=== PATIENT | male | born 1980 | race Caucasian/White ===

== ENCOUNTER 2017-04-02 16:19 | Observation (INO) | payer BC, OTHER ==
[2017-04-02] MEDS ORDERED: Sodium Chloride 0.9% 10 ML Syringe FLUSH PRN (16:32)
[2017-04-02] MEDS ORDERED: Aspirin 81 MG Tab.Chew PO ONE (16:32)
[2017-04-02] MEDS ORDERED: Sodium Chloride 0.9% 2.5 ML Syringe FLUSH PRN (16:32)
[2017-04-02] MEDS ORDERED: Pantoprazole 40 MG Vial IVPUSH ONE (16:34)
--- NOTE | 2017-04-02 16:41 | EDM.PDOC ---
ED HPI GENERAL MEDICAL PROBLEM - General Chief Complaint: Chest Pain Stated Complaint: CHEST PAIN Time Seen by Provider: 04/02/17 16:23 - History of Present Illness INITIAL COMMENTS - FREE TEXT/NARRATIVE: HISTORY AND PHYSICAL: History of present illness: The patient is a 36-year-old male who normally follows at the [facility] and has a history of high cholesterol and acid reflux and a history of tobacco use but he quit in October of this year and he presents with 12 hours of mid sternal chest pain that radiates slightly to the left lower chest. The patient states he had a normal day yesterday and slept fine all night and woke up to get ready for work and as the morning progressed he started feeling the discomfort and he rates it as a 5-6/10. The patient states that he has had it for the last 12 hours but it is been episodic and then became more constant which is what worried him and prompted him to come here. He has had no shortness of breath nausea or vomiting and no abdominal pain no leg pain or swelling but he has had diaphoresis with these episodes. He states that he only came here because the episodes became more consistent and it was not waxing and waning. He has no back pain no arm pain and no radiation of the pain to the jaw or the arm. He states he had a stress test in the 5 years ago and he was not told of any abnormalities. He has had no upper respiratory symptoms fevers chills and has been eating and drinking normally throughout the day today despite the pain. The patient has no significant social history for cocaine or meth use but does have a father who had a heart attack in his early 50s. Review of systems: As per history of present illness and below otherwise all systems reviewed and negative. Past medical history: As per history of present illness and as reviewed below otherwise noncontributory. Surgical history: As per history of present illness and as reviewed below otherwise noncontributory. Social history: No reported history of drug or alcohol abuse. Family history: As per history of present illness and as reviewed below otherwise noncontributory. Physical exam: General: Well-developed overweight male who is nontoxic and speaking clearly and easily in the ED. Vital signs of a note by me. I mentioned his hypertension to the patient and he states it is never had that before HEENT: Atraumatic, normocephalic, pupils reactive, negative for conjunctival pallor or scleral icterus, mucous membranes moist, throat clear, neck supple, nontender, trachea midline. Lungs: Clear to auscultation, breath sounds equal bilaterally, chest wall is mildly tender on palpation at the costochondral margin on the left without defects deformities swelling or ecchymosis. Heart: S1S2, regular, negative for clicks, rubs, or JVD. Abdomen: Soft, nondistended, nontender. Negative for masses or hepatosplenomegaly. Negative for costovertebral tenderness. Pelvis: Stable nontender. Genitourinary: Deferred. Rectal: Deferred. Extremities: Atraumatic, negative for cords or calf pain. Neurovascular unremarkable. is no pedal edema or leg asymmetry Neuro: Awake, alert, oriented. Cranial nerves II through XII unremarkable. Cerebellum unremarkable. Motor and sensory unremarkable throughout. Exam nonfocal. Diagnostics: EKG chest x-ray CBC CMP INR troponin Therapeutics: IV O2 monitor aspirin sublingual nitroglycerin and Nitropaste Please note the patient's pain is a 0 after [address] Nitrop[address] and plan on observation admission. I'm currently awaiting the rest of the testing results and we'll discuss them with the patient and the care plan of admission 1713: I discussed all testing results with the patient and with Dr. Calrk. Both are agreeable to observation admission. Impression: Chest pain rule out ACS Definitive disposition and diagnosis as appropriate pending reevaluation and review of above. chest Pain Score (Numeric/FACES): 3 - Related Data Allergies Allergy/AdvReac Type Severity Reaction Status Date / Time No Known Allergies Allergy Verified 04/02/17 16:30 Home Meds: Home Meds FLUoxetine [PROzac] 10 mg PO DAILY 09/09/14 [History] Omeprazole [priLOSEC OTC] 20 mg PO DAILY 09/09/14 [History] Pantoprazole Sodium 1 tab PO DAILY 10/31/15 [History] Ranitidine HCl 1 cap PO DAILY 10/31/15 [History] Past Medical History Respiratory History: Reports: Sleep Apnea Other Respiratory History: Sleep apnea with machine Gastrointestinal History: Reports: GERD, Other (See Below) Other Gastrointestinal History: Epigastric pain, vomiting post meals Musculoskeletal History: Reports: Fracture Other Musculoskeletal History: Dislocated and fractured bilateral wrists Neurological History: Reports: Other (See Below) Other Neuro History: Frequent Headaches Psychiatric History: Reports: Anxiety, Depression Endocrine/Metabolic History: Reports: Obesity/BMI 30+ Immunologic History: Reports: Other (See Below) Other Immunologic History: 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 Monte regarding this. - Past Surgical History HEENT Surgical History: Reports: Oral Surgery Musculoskeletal Surgical History: Reports: Other (See Below) Social & Family History - Tobacco Use Smoking Status *Q: Former Smoker Years of Tobacco use: 12 Used Tobacco, but Quit: Yes Month Tobacco Last Used: 02/10/13 - Alcohol Use Days Per Week of Alcohol Use: 1 Number of Drinks Per Day: 2 Total Drinks Per Week: 2 - Recreational Drug Use Recreational Drug Use: Yes Drug Use in Last 12 Months: No Recreational Drug Type: Reports: Marijuana/Hashish ED ROS GENERAL - Review of Systems Review Of Systems: ROS reveals no pertinent complaints other than HPI. ED EXAM, GENERAL - Physical Exam Exam: See Below (See dictation) Course - Vital Signs Last Recorded V/S: Last Vital Signs Temp 36.4 C 04/02/17 16:30 Pulse 73 04/02/17 16:30 Resp 20 04/02/17 16:30 BP 130/87 04/02/17 16:48 Pulse Ox 96 04/02/17 16:32 - Orders/Labs/Meds Orders: Active Orders 24 hr Category Date Time Status Cardiac Monitoring [RC] . DIRECTED Care 04/02/17 16:32 Active EKG Documentation Completion [RC] STAT Care 04/02/17 16:32 Active Oxygen Therapy, ED [RC] ASDIRECTED Care 04/02/17 16:32 Active Pulse Oximetry [RC] ASDIRECTED Care 04/02/17 16:32 Active Chest 1V Frontal [CR] Stat Exams 04/02/17 16:32 Taken Sodium Chloride 0.9% [Saline Flush] Med 04/02/17 16:32 Active 10 ml FLUSH ASDIRECTED PRN Sodium Chloride 0.9% [Saline Flush] Med 04/02/17 16:32 Active 2.5 ml FLUSH ASDIRECTED PRN Saline Lock Insert [OM.PC] Stat Oth 04/02/17 16:32 Ordered Medication Orders Sodium Chloride (Saline Flush) 10 ml FLUSH ASDIRECTED PRN PRN Reason: Keep Vein Open Sodium Chloride (Saline Flush) 2.5 ml FLUSH ASDIRECTED PRN PRN Reason: Keep Vein Open Labs: Laboratory Tests 04/02/17 04/02/17 04/02/17 Range/Units 16:32 16:32 16:32 WBC 7.62 (4.0-11.0) K/uL RBC 4.98 (4.50-5.90) M/uL Hgb 14.6 (13.0-17.0) g/dL Hct 41.6 (38.0-50.0) % MCV 83.5 (80.0-98.0) fL MCH 29.3 (27.0-32.0) pg MCHC 35.1 (31.0-37.0) g/dL RDW Std Deviation 38.6 (28.0-62.0) fl RDW Coeff of [place] 13 (11.0-15.0) % Plt Count 226 (150-400) K/uL MPV 10.10 (7.40-12.00) fL Neut % (Auto) 54.0 (48.0-80.0) % Lymph % (Auto) 33.6 (16.0-40.0) % [place] % (Auto) 8.7 (0.0-15.0) % Eos % (Auto) 3.0 (0.0-7.0) % Baso % (Auto) 0.7 (0.0-1.5) % Neut # (Auto) 4.1 (1.4-5.7) K/uL Lymph # (Auto) 2.6 H (0.6-2.4) K/uL [place] # (Auto) 0.7 (0.0-0.8) K/uL Eos # (Auto) 0.2 (0.0-0.7) K/uL Baso # (Auto) 0.1 (0.0-0.1) K/uL Nucleated RBC % 0.0 /100WBC Nucleated RBCs # 0 K/uL INR 1.00 (0.86-1.11) Sodium 139 (136-146) mmol/L Potassium 3.7 (3.5-5.1) mmol/L Chloride 105 (98-110) mmol/L Carbon Dioxide 24 (21-31) mmol/L BUN 17 (6.0-23.0) mg/dL Creatinine 1.1 (0.6-1.5) mg/dL Est Cr Clr Drug Dosing 88.47 mL/min Estimated GFR (MDRD) > 60.0 ml/min Glucose 89 (60-110) mg/dL Calcium 9.0 (8.8-10.8) mg/dL Total Bilirubin 0.5 (0.1-1.5) mg/dL AST 26 (5-40) IU/L ALT 47 (8-54) IU/L Alkaline Phosphatase 107 (40-150) Troponin I (0.0-0.29) NG/ML Total Protein 7.4 (6.0-8.0) g/dL Albumin 4.6 (3.5-5.0) g/dL Globulin 2.8 (2.0-3.5) g/dL Albumin/Globulin Ratio 1.6 (1.3-2.8) / Range/Units 16:32 WBC (4.0-11.0) K/uL RBC (4.50-5.90) M/uL Hgb (13.0-17.0) g/dL Hct (38.0-50.0) % MCV (80.0-98.0) fL MCH (27.0-32.0) pg MCHC (31.0-37.0) g/dL RDW Std Deviation (28.0-62.0) fl RDW Coeff of [place] (11.0-15.0) % Plt Count (150-400) K/uL MPV (7.40-12.00) fL Neut % (Auto) (48.0-80.0) % Lymph % (Auto) (16.0-40.0) % [place] % (Auto) (0.0-15.0) % Eos % (Auto) (0.0-7.0) % Baso % (Auto) (0.0-1.5) % Neut # (Auto) (1.4-5.7) K/uL Lymph # (Auto) (0.6-2.4) K/uL [place] # (Auto) (0.0-0.8) K/uL Eos # (Auto) (0.0-0.7) K/uL Baso # (Auto) (0.0-0.1) K/uL Nucleated RBC % /100WBC Nucleated RBCs # K/uL INR (0.86-1.11) Sodium (136-146) mmol/L Potassium (3.5-5.1) mmol/L Chloride (98-110) mmol/L Carbon Dioxide (21-31) mmol/L BUN (6.0-23.0) mg/dL Creatinine (0.6-1.5) mg/dL Est Cr Clr Drug Dosing mL/min Estimated GFR (MDRD) ml/min Glucose (60-110) mg/dL Calcium (8.8-10.8) mg/dL Total Bilirubin (0.1-1.5) mg/dL AST (5-40) IU/L ALT (8-54) IU/L Alkaline Phosphatase (40-150) Troponin I < 0.10 (0.0-0.29) NG/ML Total Protein (6.0-8.0) g/dL Albumin (3.5-5.0) g/dL Globulin (2.0-3.5) g/dL Albumin/Globulin Ratio (1.3-2.8) Meds: Medications Generic Name Dose Route Start Last Admin Trade Name Freq PRN Reason Stop Dose Admin Sodium Chloride 10 ml 04/02/17 16:32 Saline Flush FLUSH ASDIRECTED PRN Keep Vein Open Sodium Chloride 2.5 ml 04/02/17 16:32 Saline Flush FLUSH ASDIRECTED PRN Keep Vein Open Discontinued Medications Generic Name Dose Route Start Last Admin Trade Name Freq PRN Reason Stop Dose Admin Aspirin 324 mg 04/02/17 16:32 04/02/17 16:43 Aspirin PO 04/02/17 16:33 324 mg ONETIME ONE Administration Nitroglycerin 0.4 mg 04/02/17 16:45 04/02/17 16:48 Nitrostat SL 04/02/17 16:56 0.4 mg Q5M BENJI Administration Nitroglycerin 1 gm 04/02/17 16:56 04/02/17 16:58 Nitro-Bid 2% TOP 04/02/17 16:57 1 gm ONETIME ONE Administration Pantoprazole Sodium 80 mg 04/02/17 16:34 04/02/17 16:43 Protonix Iv IVPUSH 04/02/17 16:35 80 mg .BOLUS ONE Administration Departure - Departure Time of Disposition: 17:26 Disposition: Refer to Observation Condition: Good Clinical Impression: Acute coronary syndrome - Discharge Information Forms: ED Department Discharge - My Orders Last 24 Hours: My Active Orders 04/02/17 16:32 Cardiac Monitoring [RC] . DIRECTED EKG Documentation Completion [RC] STAT Oxygen Therapy, ED [RC] ASDIRECTED Pulse Oximetry [RC] ASDIRECTED Chest 1V Frontal [CR] Stat Sodium Chloride 0.9% [Saline Flush] 10 ml FLUSH ASDIRECTED PRN Sodium Chloride 0.9% [Saline Flush] 2.5 ml FLUSH ASDIRECTED PRN Saline Lock Insert [OM.PC] Stat - Assessment/Plan Last 24 Hours: My Active Orders 04/02/17 16:32 Cardiac Monitoring [RC] . DIRECTED EKG Documentation Completion [RC] STAT Oxygen Therapy, ED [RC] ASDIRECTED Pulse Oximetry [RC] ASDIRECTED Chest 1V Frontal [CR] Stat Sodium Chloride 0.9% [Saline Flush] 10 ml FLUSH ASDIRECTED PRN Sodium Chloride 0.9% [Saline Flush] 2.5 ml FLUSH ASDIRECTED PRN Saline Lock Insert [OM.PC] Stat
[2017-04-02] MEDS: Nitroglycerin 0.4 MG Tab.SL SL SCH ×3 (16:43→19:58)
[2017-04-02] MEDS ORDERED: Nitroglycerin 2% Oint 1 GM UD Packet TOP ONE (16:56)
[2017-04-02 17:21] LABS: CHLORIDE,CL 105 mmol/L (98-110); SODIUM,NA 139 mmol/L (136-146)
[2017-04-02] MEDS ORDERED: Acetaminophen 325 MG Tab PO PRN (18:47)
--- NOTE | 2017-04-02 18:53 | PCM.HP ---
H&P History of Present Illness - History of Present Illness Initial Comments - Free Text/Narative: 36 yo male with pmh of PTSD, hypertriglyceridemia, and GERD who presents with 12 hour history of chest pain. It started this morning which he describes a constant pins and needles in the left substernal chest. If would flare at times but would not be related to exertion. He had diaphoresis but no shortness of breath, or lightheadedness. He received ASA, Nitro and protonix in the ED with resolution of chest pain. Initial EKG and cardiac enzymes were negative. chest Pain Score (Numeric/FACES): 3 - Related Data Allergies/Adverse Reactions: Allergies Allergy/AdvReac Type Severity Reaction Status Date / Time No Known Allergies Allergy Verified 04/02/17 16:30 Home Medications: Home Meds Pantoprazole Sodium 40 mg PO DAILY 10/31/15 [History] Sucralfate [Carafate] 1 gm PO Q6H #56 cup 04/03/17 [Rx] Past Medical History Cardiovascular History: Reports: High Cholesterol Respiratory History: Reports: Sleep Apnea Other Respiratory History: Sleep apnea with machine Gastrointestinal History: Reports: GERD, Other (See Below) Other Gastrointestinal History: Epigastric pain, vomiting post meals Musculoskeletal History: Reports: Fracture Other Musculoskeletal History: Dislocated and fractured bilateral wrists Neurological History: Reports: Other (See Below) Other Neuro History: Frequent Headaches Psychiatric History: Reports: Anxiety, Depression Endocrine/Metabolic History: Reports: Obesity/BMI 30+ Immunologic History: Reports: Other (See Below) Other Immunologic History: 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 Monte regarding this. - Past Surgical History HEENT Surgical History: Reports: Oral Surgery Musculoskeletal Surgical History: Reports: Other (See Below) Social & Family History - Family History Family Medical History: Noncontributory Cardiac: Reports: [place], Other (See Below) Other Cardiac Family History: mother and father - Tobacco Use Smoking Status *Q: Former Smoker Years of Tobacco use: 12 Used Tobacco, but Quit: Yes Month Tobacco Last Used: 02/10/13 - Caffeine Use Caffeine Use: Reports: None - Alcohol Use Days Per Week of Alcohol Use: 1 Number of Drinks Per Day: 2 Total Drinks Per Week: 2 - Recreational Drug Use Recreational Drug Use: Yes Drug Use in Last 12 Months: No Recreational Drug Type: Reports: Marijuana/Hashish H&P Review of Systems - Review of Systems: Review Of Systems: See Below General: Reports: No Symptoms HEENT: Reports: No Symptoms Pulmonary: Reports: No Symptoms Cardiovascular: Reports: No Symptoms Gastrointestinal: Reports: No Symptoms Genitourinary: Reports: No Symptoms Musculoskeletal: Reports: No Symptoms Skin: Reports: No Symptoms Psychiatric: Reports: No Symptoms Neurological: Reports: No Symptoms Hematologic/Lymphatic: Reports: No Symptoms Immunologic: Reports: No Symptoms Exam - Exam Exam: See Below - Vital Signs Vital Signs: Last Vital Signs Temp 36.4 C 04/02/17 16:30 Pulse 81 04/02/17 17:31 Resp 18 04/02/17 17:31 BP 127/87 04/02/17 17:31 Pulse Ox 96 04/02/17 17:31 Weight: 127.8 kg - Exam General: Alert, Oriented, 4 HEENT: Mucosa Moist & [place] Neck: Supple, Trachea Midline. No: JVD Lungs: Clear to Auscultation, Normal Respiratory Effort Cardiovascular: Regular Rate, Regular Rhythm Abdomen: Normal Bowel Sounds, Soft Extremities: Normal Inspection. No: Edema Skin: Warm, Dry, Intact Neurological: No: Focal Deficit - Patient Data Result Diagrams: 04/02/17 16:32 04/02/17 16:32 *Q Meaningful Use (ADM) - VTE *Q VTE Criteria *Q: - Stroke *Q Stroke Criteria *Q: - AMI *Q AMI Criteria *Q: Problem List Initiated/Reviewed/Updated: Yes Orders Last 24hrs: Active Orders 24 hr Category Date Time Status Antiembolic Devices [RC] PER UNIT ROUTINE Care 04/02/17 18:48 Ordered Cardiac Monitoring [RC] CONTINUOUS Care 04/02/17 18:48 Ordered Oxygen Therapy [RC] PRN Care 04/02/17 18:47 Ordered Up ad [place] [RC] ASDIRECTED Care 04/02/17 18:47 Ordered VTE/DVT Education [RC] PER UNIT ROUTINE Care 04/02/17 18:47 Ordered Vital Signs [RC] Q4H Care 04/02/17 18:47 Ordered Regular Diet [DIET] Diet 04/02/17 Breakfast Ordered LIPID PANEL [CHEM] AM Lab 04/03/17 05:11 Ordered TROPONIN I [CHEM] Q6H Lab 04/02/17 23:00 Ordered TROPONIN I [CHEM] Q6H Lab 04/03/17 05:00 Ordered Acetaminophen [Tylenol] Med 04/02/17 18:47 Ordered 650 mg PO Q4H PRN Sequential Compression Device [OM.PC] Per Unit Routine Oth 04/02/17 18:48 Ordered Resuscitation Status Routine Resus Stat 04/02/17 18:47 Ordered Medication Orders Sodium Chloride (Saline Flush) 10 ml FLUSH ASDIRECTED PRN PRN Reason: Keep Vein Open Sodium Chloride (Saline Flush) 2.5 ml FLUSH ASDIRECTED PRN PRN Reason: Keep Vein Open Assessment/Plan Comment:: 36 yo male who presents with chest pain. Will trend cardiac enzymes.
[2017-04-03 08:57] VITALS: BP 132/76
--- NOTE | 2017-04-03 11:49 | CR ---
EXAM DATE: 04/02/17 PATIENT'S AGE: 36 Patient: [facility] Facility: [place], [place] Site . Site : [id number] Study: XRay Chest [id number]/[id number] 5:22:13 PM Ordering Physician: Kayla Romeo Final Report: INDICATION: Chest pain TECHNIQUE: Chest radiograph 1 view COMPARISON: None FINDINGS: Cardiovascular and mediastinum: The heart silhouette is normal in size and morphology. The mediastinum is normal in appearance. Lungs and pleural spaces: Both lungs are unremarkable in appearance. No sign of pleural effusion seen. No pneumothorax is identified. Bones and soft tissues: No significant findings. IMPRESSION: 1. Negative chest. Dictated by Tej Swanson MD @ 04/02/2017 6:06:31 PM Dictated by: Tej Swanson MD @ 04/02/2017 18:06:39 (Electronic Signature) Report Signed by Proxy. [facility]
--- NOTE | 2017-04-03 13:48 | PCM.DCSUM1 ---
<Pranay Goel - Last Filed: 04/03/17 13:45> Discharge Summary - Hospital Course HPI Initial Comments: 36-year-old male admitted 04/02/17 for atypical chest pain with PMH of hypertriglyceridemia and GERD. Brief History: Patient initially presented to the emergency department on after having substernal chest pain intermittently for 12 hours without radiation. Patient states that the pain was episodic it became more constant which prompted him to go to the emergency department. He had no associated shortness of breath, nausea, vomiting, diaphoresis, palpitations, abdominal pain , or leg pain. Patient did have a stress test when he was in the 5 years previously and was told there were no abnormalities. Patient does have a family history of a father who had a heart attack in his early 50s. He has a history of hypertriglyceridemia and GERD for which he takes pantoprazole. States that he has had "ulcers" before but did not have similar symptoms with them. Patient reported having an EGD done approximately 2 years ago which diagnosed ulcerative findings. - Discharge Data Discharge Date: 04/03/17 Discharge Disposition: Home, Self-Care 01 Condition: Good - Patient Summary/Data Hospital Course: Emergency Department: Vital signs were within normal limits. Chest x-ray, CBC, CMP, and initial troponin were unremarkable. Patient was admitted for serial troponins. Patient continued to have intermittent substernal chest pain without radiation. There were no significant findings on telemetry overnight. Serial troponins were negative. Patient's atypical chest pain was most likely secondary to GERD. Patient was discharged in good condition with prescriptions for Carafate and told to resume his pantoprazole. He was also scheduled a followup appointment with Dr. Jeter his PCP. Patient's lipid panel revealed hypertriglyceridemia at 202, and low levels of HDL at 25. Total cholesterol was 149 and LDL was 84. - Patient Instructions Diet: Regular Diet as Tolerated Activity: Rest and Relax Today Driving: May Drive Today Showering/Bathing: May Shower Notify Provider of: Fever, Increased Pain, Swelling and Redness, Nausea and/or Vomiting Other/Special Instructions: Follow-up with Dr. Jeter as scheduled may need EGD in future. Take medications as prescribed. Decrease greasy fatty foods and increase omega 3 fatty acids for high trylcerides and low HDL (good cholesterol) . Return to ED if having new symptoms. - Discharge Plan Prescriptions/Med Rec: Sucralfate [Carafate] 1 gm PO Q6H #56 cup Home Medications: Home Meds Pantoprazole Sodium 40 mg PO DAILY 10/31/15 [History] Sucralfate [Carafate] 1 gm PO Q6H #56 cup 04/03/17 [Rx] Patient Handouts: Acute Coronary Syndrome, Sucralfate oral suspension Referrals: Jose Guadalupe Jeter DO [Physician] - 04/10/17 11:30 am - Discharge Summary/Plan Comment DC Time >30 min.: Yes Discharge Summary/Plan Comment: 36-year-old male admitted 04/02/17 for atypical chest pain with PMH of hypertriglyceridemia and GERD. Patient initially presented to the emergency department on 04/02/17 after having substernal chest pain intermittently for 12 hours without radiation. Patient states that the pain was episodic it became more constant which prompted him to go to the emergency department. He had no associated shortness of breath, nausea , vomiting, diaphoresis, palpitations, abdominal pain, or leg pain. Patient did have a stress test when he was in the 5 years previously and was told there were no abnormalities. Patient does have a family history of a father who had a heart attack in his early 50s. He has a history of hypertriglyceridemia and GERD for which he takes pantoprazole. States that he has had "ulcers" before but did not have similar symptoms with them. Patient reported having an EGD done approximately 2 years ago which diagnosed ulcerative findings. Emergency Department: Vital signs were within normal limits. Chest x-ray, CBC, CMP, and initial troponin were unremarkable. Patient was admitted for serial troponins. Patient continued to have intermittent substernal chest pain without radiation. There were no significant findings on telemetry overnight. Serial troponins were negative. Patient's atypical chest pain was most likely secondary to GERD. Patient was discharged in good condition with prescriptions for Carafate and told to resume his pantoprazole. He was also scheduled a followup appointment with Dr. Jeter his PCP. Patient's lipid panel revealed hypertriglyceridemia at 202, and low levels of HDL at 25. Total cholesterol was 149 and LDL was 84. Dietary modifications were discussed with the patient to decrease his triglyceride levels as well as increase his HDL. He was advised that an outpatient EGD may be warranted secondary to his new symptoms. Patient was instructed to return to ED if he had any new symptoms. - General Info Date of Service: 04/03/17 Admission Dx/Problem (Free Text: Atypical chest pain Subjective Update: Doing well but still having intermittent substernal chest pain without radiation , no associated sob, n/v, or diaphoresis. No abd pain or leg pain. Eating and eliminating without difficulty. - Review of Systems General: Denies: Fever, Weakness, Appetite HEENT: Denies: headaches, visual changes Pulmonary: Denies: shortness of breath, cough, wheezing Cardiovascular: Denies: Chest Pain, Palpitations, Edema Gastrointestinal: Denies: Abdominal pain, Diarrhea, Nausea, Vomiting Genitourinary: Denies: dysuria, hematuria Musculoskeletal: Denies: neck pain, leg pain Skin: Denies: cyanosis Neurological: Denies: Confusion Psychiatric: Denies: confusion - Patient Data Vitals - Most Recent: Last Vital Signs Temp 35.8 C 04/03/17 08:00 Pulse 65 04/03/17 08:00 Resp 20 04/03/17 08:00 BP 132/76 04/03/17 08:00 Pulse Ox 98 04/03/17 08:00 Weight - Most Recent: 127.8 kg I&O - Last 24 hours: Intake & Output 04/02/17 04/03/17 04/03/17 22:59 06:59 14:59 Intake Total 300 Output Total 740 Balance -440 Lab Results - Last 24 hrs: Laboratory Results - last 24 hr 04/02/17 04/03/17 04/03/17 Range/Units 22:53 04:33 04:33 Troponin I < 0.10 < 0.10 (0.0-0.29) NG/ML Triglycerides 202 H (10-190) mg/dL Cholesterol 149 (131-240) mg/dL LDL Cholesterol, Calc 84 (60-180) mg/dL VLDL Cholesterol 40 (5-55) mg/dL HDL Cholesterol 25 L (40-80) mg/dL Cholesterol/HDL Ratio 6.0 (3.3-6.0) Med Orders - Current: Current Medications Acetaminophen (Tylenol) 650 mg PO Q4H PRN PRN Reason: Pain (Mild 1-3)/fever Last Admin: 04/03/17 00:33 Dose: 650 mg Sodium Chloride (Saline Flush) 10 ml FLUSH ASDIRECTED PRN PRN Reason: Keep Vein Open Sodium Chloride (Saline Flush) 2.5 ml FLUSH ASDIRECTED PRN PRN Reason: Keep Vein Open Discontinued Medications Aspirin (Aspirin) 324 mg PO ONETIME ONE Stop: 04/02/17 16:33 Last Admin: 04/02/17 16:43 Dose: 324 mg Nitroglycerin (Nitrostat) 0.4 mg SL Q5M BENJI Stop: 04/02/17 16:56 Last Admin: 04/02/17 19:58 Dose: Not Given Nitroglycerin (Nitro-Bid 2%) 1 gm TOP ONETIME ONE Stop: 04/02/17 16:57 Last Admin: 04/02/17 16:58 Dose: 1 gm Pantoprazole Sodium (Protonix Iv) 80 mg IVPUSH .BOLUS ONE Stop: 04/02/17 16:35 Last Admin: 04/02/17 16:43 Dose: 80 mg - Exam Quality Assessment: Reports: DVT prophylaxis General: Reports: alert, oriented, cooperative, no acute distress HEENT: Reports: Pupils equal, Pupils reactive, EOMI, Mucous membr. moist/pink Neck: Reports: supple Lungs: Reports: Clear to auscultation, Normal respiratory effort Cardiovascular: Reports: Regular Rate, Regular Rhythm Abdomen: Reports: bowel sounds present, soft, no tenderness, no distension Back Exam: Reports: Normal Inspection, Full Range of Motion Extremities: Reports: no edema, normal pulses, no tenderness/swelling, no calf tenderness Skin: Reports: warm, dry, intact Wound/Incisions: Reports: healing well Neurological: Reports: no new focal deficit Psy/Mental Status: Reports: alert, normal affect, normal mood *Q Meaningful Use (DIS) - VTE *Q VTE Criteria *Q: - Stroke *Q Stroke Criteria *Q: - AMI *Q AMI Criteria *Q: <Leo Clark - Last Filed: 04/03/17 19:39> - Patient Data Vitals - Most Recent: Last Vital Signs Temp 35.8 C 04/03/17 08:00 Pulse 65 04/03/17 08:00 Resp 20 04/03/17 08:00 BP 132/76 04/03/17 08:00 Pulse Ox 98 04/03/17 08:00 I&O - Last 24 hours: Intake & Output 0604/03/17 04/03/17 06:59 14:59 22:59 Intake Total 300 540 Output Total 740 880 Balance -440 -340 Lab Results - Last 24 hrs: Laboratory Results - last 24 hr 04/02/17 04/03/17 04/03/17 Range/Units 22:53 04:33 04:33 Troponin I < 0.10 < 0.10 (0.0-0.29) NG/ML Triglycerides 202 H (10-190) mg/dL Cholesterol 149 (131-240) mg/dL LDL Cholesterol, Calc 84 (60-180) mg/dL VLDL Cholesterol 40 (5-55) mg/dL HDL Cholesterol 25 L (40-80) mg/dL Cholesterol/HDL Ratio 6.0 (3.3-6.0) Med Orders - Current: Current Medications Discontinued Medications Acetaminophen (Tylenol) 650 mg PO Q4H PRN PRN Reason: Pain (Mild 1-3)/fever Last Admin: 04/03/17 00:33 Dose: 650 mg Aspirin (Aspirin) 324 mg PO ONETIME ONE Stop: 04/02/17 16:33 Last Admin: 04/02/17 16:43 Dose: 324 mg Nitroglycerin (Nitrostat) 0.4 mg SL Q5M BENJI Stop: 04/02/17 16:56 Last Admin: 04/02/17 19:58 Dose: Not Given Nitroglycerin (Nitro-Bid 2%) 1 gm TOP ONETIME ONE Stop: 04/02/17 16:57 Last Admin: 04/02/17 16:58 Dose: 1 gm Pantoprazole Sodium (Protonix Iv) 80 mg IVPUSH .BOLUS ONE Stop: 04/02/17 16:35 Last Admin: 04/02/17 16:43 Dose: 80 mg Sodium Chloride (Saline Flush) 10 ml FLUSH ASDIRECTED PRN PRN Reason: Keep Vein Open Sodium Chloride (Saline Flush) 2.5 ml FLUSH ASDIRECTED PRN PRN Reason: Keep Vein Open *Q Meaningful Use (DIS) - VTE *Q VTE Criteria *Q: - Stroke *Q Stroke Criteria *Q: - AMI *Q AMI Criteria *Q: - Free Text/Narrative Note: I have examined the patient. I have discussed findings and treatment plan with resident. I agree with the assessment and plan outlined in the following note.
== END 2017-04-03 12:20 | disposition home or self-care (01) ==
LOC: MW.ED 16:19 → MW.MS 17:27 → UNDOADMOB 18:03
PROVIDERS: ADMIT Internal Medicine; ATTEND Internal Medicine
DX: R07.2 Precordial pain (principal); E78.1 Pure hyperglyceridemia; K21.9 Gastro-esophageal reflux disease without esophagitis; G47.30 Sleep apnea, unspecified; F41.9 Anxiety disorder, unspecified; F32.9 Major depressive disorder, single episode, unspecified; Z86.14 Personal history of Methicillin resistant Staphylococcus aureus infection; Z87.891 Personal history of nicotine dependence; Z82.49 Family history of ischemic heart disease and other diseases of the circulatory system; Z79.899 Other long term (current) drug therapy; Z98.890 Other specified postprocedural states
CPT/HCPCS: 36415; 71010; 80053; 80061; 84484; 85025; 85610; 93005; 96374; 99285; A9270; C9113; G0378

== ENCOUNTER 2017-05-20 07:38 | Day surgery (SDC) | payer BC, OTHER ==
[~2017-05-20 07:38] MED LIST: Lactated Ringers 1,000 ML IV SCH; Lidocaine 2% 5 ML SDV ONE; Midazolam 1 MG/ML 2 ML SDV ONE; Propofol 200 MG/20 ML SDV ONE; fentaNYL 100 MCG/2 ML SDV ONE
--- NOTE | 2017-05-20 08:17 | PCM.PREANE ---
Preanesthetic Assessment - Anesthesia/Transfusion/Family Hx Anesthesia History: Prior Anesthesia Without Reaction Other Type of Anesthesia Reaction Comment: Denies any known problem with anesthesia in the past Family History of Anesthesia Reaction: No Transfusion History: No Prior Transfusion(s) - Review of Systems General: No Symptoms Pulmonary: No Symptoms Cardiovascular: No Symptoms Gastrointestinal: No Symptoms Neurological: No Symptoms Other: Reports: None - Physical Assessment NPO Status Date: 05/19/17 Height: 1.7 m Weight: 126.099 kg ASA Class: 2 Mental Status: Alert & Oriented x3 Airway Class: Mallampati = 1 Dentition: Reports: Normal Dentition ROM/Head Extension: Full Lungs: Clear to Auscultation, Normal Respiratory Effort Cardiovascular: Regular Rate, Regular Rhythm - Allergies Allergies/Adverse Reactions: Allergies Allergy/AdvReac Type Severity Reaction Status Date / Time No Known Allergies Allergy Verified 04/02/17 16:30 - Acknowledgements Anesthesia Type Planned: MAC Pt an Appropriate Candidate for the Planned Anesthesia: Yes Alternatives and Risks of Anesthesia Discussed w Pt/Guardian: Yes Pt/Guardian Understands and Agrees with Anesthesia Plan: Yes PreAnesthesia Questionnaire Cardiovascular History: Respiratory History: Reports: Sleep Apnea Other Respiratory History: Sleep apnea with machine Gastrointestinal History: Reports: Gastritis, GERD, Other (See Below) Other Gastrointestinal History: "esophageal ulcers" Genitourinary History: Reports: None Musculoskeletal History: Reports: Fracture Other Musculoskeletal History: Dislocated and fractured bilateral wrists Neurological History: Reports: None Psychiatric History: Reports: Anxiety, Depression Endocrine/Metabolic History: Reports: Obesity/BMI 30+ Immunologic History: Reports: Other (See Below) Other Immunologic History: 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 - Past Surgical History Head Surgeries/Procedures: Reports: None HEENT Surgical History: Reports: Oral Surgery Other HEENT Surgeries/Procedures: [place] teeth extracted with anesthesia Respiratory Surgical History: Reports: None GI Surgical History: Reports: EGD Musculoskeletal Surgical History: Reports: Arthroscopic Knee - SUBSTANCE USE Smoking Status *Q: Former Smoker Tobacco Use Within Last Twelve Months: Cigarettes Other Tobacco Use Within Last Twelve Months: Quit Smoking Second Hand Smoke Exposure: No Days Per Week of Alcohol Use: 1 Number of Drinks Per Day: 2 Total Drinks Per Week: 2 Recreational Drug Use History: Yes Recreational Drug Type: Reports: Marijuana/Hashish - HOME MEDS Home Medications: Home Meds Pantoprazole Sodium 40 mg PO DAILY 10/31/15 [History] Fish Oil/[place]-3 Fatty Acids [Fish Oil 1,000 MG] 2 tab PO BID 05/19/17 [History] Ranitidine HCl [Ranitidine] 150 mg PO BEDTIME 05/19/17 [History] buPROPion HCl [Wellbutrin Xl] 150 mg PO DAILY 05/19/17 [History] - CURRENT (IN HOUSE) MEDS Current Meds: Current Medications Lactated Ringer's (Ringers, Lactated) 1,000 mls @ 125 mls/hr IV ASDIRECTED BEJNI Last Admin: 05/20/17 08:03 Dose: 125 mls/hr Discontinued Medications Fentanyl (Sublimaze) Confirm Administered Dose 100 mcg .ROUTE .STK-MED ONE Stop: 05/20/17 07:19 Lidocaine (Xylocaine-Mpf 2%) Confirm Administered Dose 5 ml .ROUTE .STK-MED ONE Stop: 05/20/17 07:18 Midazolam HCl (Versed 1 Mg/Ml) Confirm Administered Dose 2 mg .ROUTE .STK-MED ONE Stop: 05/20/17 07:19 Propofol (Diprivan 20 Ml) Confirm Administered Dose 400 mg .ROUTE .STK-MED ONE Stop: 05/20/17 07:18
--- NOTE | 2017-05-20 09:55 | PCM.OPNOTE ---
- General Post-Op/Procedure Note Date of Surgery/Procedure: 05/20/17 Operative Procedure(s): egd w bx Findings: see dict [id number] Pre Op Diagnosis: gerd Post-Op Diagnosis: Same Anesthesia Technique: Moderate Sedation Primary Surgeon: Byron Hair Pathology: sent Complications: None Condition: Good
--- NOTE | 2017-05-20 10:05 | PCM48HPAN ---
Post Anesthesia Note - EVALUATION WITHIN 48HRS OF ANESTHETIC Vital Signs in Normal Range: Yes Patient Participated in Evaluation: Yes Respiratory Function Stable: Yes Airway Patent: Yes Cardiovascular Function Stable: Yes Hydration Status Stable: Yes Pain Control Satisfactory: Yes Nausea and Vomiting Control Satisfactory: Yes Mental Status Recovered: Yes
--- NOTE | 2017-05-20 10:05 | PCM.POSTAN ---
POST ANESTHESIA ASSESSMENT - MENTAL STATUS Mental Status: Alert, Oriented - RESPIRATORY Respiratory Status: Respiratory Rate WNL, Airway Patent - CARDIOVASCULAR CV Status: Pulse Rate WNL, Blood Pressure Stable - GASTROINTESTINAL GI Status: No Symptoms - POST OP HYDRATION Hydration Status: Adequate & Stable
[2017-05-20 11:08] VITALS: BP 130/74
--- NOTE | 2017-05-20 12:05 | OR ---
SURGEON: Byron Hair MD DATE OF PROCEDURE: 05/20/2017 PREOPERATIVE DIAGNOSIS: Acid reflux. POSTOPERATIVE DIAGNOSIS: Acid reflux. PROCEDURE PERFORMED: Esophagogastroduodenoscopy with biopsy. COMPLICATIONS: None. PROCEDURE IN DETAIL: EGD: The patient was taken to the endoscopy room, and with the [employer], Diprivan was administered. A well-lubricated EGD scope was gently inserted through the oropharynx, down the esophagus, passing through the gastroesophageal junction, into the stomach. The mucosa was examined upon the passage. Any etiology will be noted. Once in the stomach, we continued to advance to the distal antrum, passed through the pylorus into the second portion of the duodenum. Again, the mucosa was examined for any abnormality and etiology. The scope was then retrieved back to the stomach and then retroflexed to look at the fundus of the stomach. If a biopsy was indicated, we will biopsy the antrum, body, and gastroesophageal junction. The air will be sucked out while the scope is retrieved to reduce the patient's discomfort. The patient tolerated the procedure well. There were no intraoperative complications. Dr. Hair was present through the whole procedure. Prior to surgery, a time-out had been called, the patient identified, procedure identified and antibiotic administered. FINDINGS: 1. The patient is easily sedated with [employer] and Diprivan. The patient is soundly snoring. 2. Oropharynx and proximal esophagus are free of disease. No inflammation, stricture, or diverticulosis. Distal esophagus at GE junction at 40, note for big time salmon color change consistent with significant acid reflux. Stomach rugae is normal in appearance and no blood, no bile, no food, no ulcer, and antrum is a little bit inflamed and the duodenum was grossly normal in appearance. Duodenal bulb is quite inflamed, no ulcer, no blood. Scope was retrieved back to look at the fundus of stomach and there is no hiatal hernia. No other etiology. Biopsy was done at antrum, body, GE junction, and sucked out the air while scope retrieved. SHERRIE / ANGELIQUE /[id number]
== END 2017-05-20 10:30 | disposition home or self-care (01) ==
LOC: MW.SDS 07:38
PROVIDERS: ATTEND Surgery
PROC: 0DB48ZX Excision of Esophagogastric Junction, Via Natural or Artificial Opening Endoscopic, Diagnostic (ICD-10-PCS; principal; 2017-05-20)
PROC: 0DB68ZX Excision of Stomach, Via Natural or Artificial Opening Endoscopic, Diagnostic (ICD-10-PCS; 2017-05-20)
DX: K29.50 Unspecified chronic gastritis without bleeding (principal); K20.9 Esophagitis, unspecified; K21.9 Gastro-esophageal reflux disease without esophagitis; F41.9 Anxiety disorder, unspecified; F32.9 Major depressive disorder, single episode, unspecified; E66.01 Morbid (severe) obesity due to excess calories; G47.30 Sleep apnea, unspecified; Z87.891 Personal history of nicotine dependence; Z86.14 Personal history of Methicillin resistant Staphylococcus aureus infection; Z79.899 Other long term (current) drug therapy; Z98.890 Other specified postprocedural states; Z68.41 Body mass index [BMI] 40.0-44.9, adult
CPT/HCPCS: 43239; J2250; J3010; J7120; 00740; 88305; 88312; J2704

== ENCOUNTER 2019-09-11 10:28 | Emergency (ER) | payer OTHER ==
[2019-09-11 11:00] VITALS: BP 142/82; PULSE 79
[2019-09-11] MEDS ORDERED: Dexamethasone 10 MG/ML SDV IV ONE (11:10)
--- NOTE | 2019-09-11 11:14 | EDM.PDOC ---
ED HPI GENERAL MEDICAL PROBLEM - General Chief Complaint: ENT Problem Stated Complaint: SORE THROAT, DIFFICULTY BREATHING Time Seen by Provider: 09/11/19 11:02 - History of Present Illness INITIAL COMMENTS - FREE TEXT/NARRATIVE: HISTORY AND PHYSICAL: History of present illness: The patient is a 39-year-old male who presents with sore throat and swollen uvula that started last night and worsened today. He says he's had some nasal congestion and drainage and is on chronic antihistamines and has had a slight cough but is not worried about cold symptoms and said that last night he was having trouble swallowing with discomfort but was able to eat and drink. When he woke this morning he felt like things were more swollen and he told the nurse in triage he was having difficulty breathing but he says to me he is not having difficulty breathing. He just says that it is discomforting in his throat when he takes a deep breath. He has no abdominal pain vomiting fevers chills and says that there is discomfort with eating and drinking but he is doing. Review of systems: As per history of present illness and below otherwise all systems reviewed and negative. Past medical history: As per history of present illness and as reviewed below otherwise noncontributory. Surgical history: As per history of present illness and as reviewed below otherwise noncontributory. Social history: No reported history of drug or alcohol abuse. Family history: As per history of present illness and as reviewed below otherwise noncontributory. Physical exam: General: Well-developed well-nourished male who is nontoxic and has nasal quality to voice but is not breathless or stridorous nor does he have coarse or muffled voice HEENT: Atraumatic, normocephalic, pupils reactive, negative for conjunctival pallor or scleral icterus, mucous membranes moist, throat clear of exudates and there is some tonsillar erythema right greater than left without swelling and the uvula is swollen and extending beyond the base of the tongue but he is midline, there is some shoddy anterior cervical adenopathy without nuchal rigidity and no posterior adenopathy, neck supple, nontender, trachea midline. Lungs: Clear to auscultation, breath sounds equal bilaterally, chest nontender. Heart: S1S2, regular rate and rhythm no overt murmurs Abdomen: Soft, nondistended, nontender. NABS Pelvis: Deferred Genitourinary: Deferred. Rectal: Deferred. Extremities: Atraumatic, negative for cords or calf pain. Neurovascular unremarkable. Neuro: Awake, alert, oriented. Cranial nerves II through XII unremarkable. Cerebellum unremarkable. Motor and sensory unremarkable throughout. Exam nonfocal. Diagnostics: [] Therapeutics: Decadron by mouth Impression: Uvulitis/pharyngitis Definitive disposition and diagnosis as appropriate pending reevaluation and review of above. Throat Pain Score (Numeric/FACES): 4 - Related Data Allergies Allergy/AdvReac Type Severity Reaction Status Date / Time No Known Allergies Allergy Verified 09/11/19 11:09 Home Meds: Home Meds Pantoprazole Sodium 40 mg PO DAILY 10/31/15 [History] Fish Oil/[place]-3 Fatty Acids [Fish Oil 1,000 MG] 2 tab PO BID 05/19/17 [History] Ranitidine HCl [Ranitidine] 150 mg PO BEDTIME 05/19/17 [History] buPROPion HCl [Wellbutrin Xl] 150 mg PO DAILY 05/19/17 [History] Past Medical History Cardiovascular History: Reports: High Cholesterol Respiratory History: Reports: Sleep Apnea Other Respiratory History: Sleep apnea with machine Gastrointestinal History: Reports: GERD, Other (See Below) Other Gastrointestinal History: Epigastric pain, vomiting post meals Genitourinary History: Reports: None Musculoskeletal History: Reports: Fracture Other Musculoskeletal History: Dislocated and fractured bilateral wrists Neurological History: Reports: Other (See Below) Other Neuro History: Frequent Headaches Psychiatric History: Reports: Anxiety, Depression Endocrine/Metabolic History: Reports: Obesity/BMI 30+ Immunologic History: Reports: Other (See Below) Other Immunologic History: 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 Monte regarding this. - Past Surgical History Musculoskeletal Surgical History: Reports: Other (See Below) Other Musculoskeletal Surgeries/Procedures:: Open Right KNee Surgery Social & Family History - Family History Family Medical History: Noncontributory Cardiac: Reports: [place], Other (See Below) Other Cardiac Family History: mother and father Respiratory: Reports: None GI: Reports: None : Reports: None OBGYN: Reports: None Musculoskeletal: Reports: None Neurological: Reports: None Psychiatric: Reports: None Endocrine/Metabolic: Reports: None Hematologic: Reports: None Immunologic: Reports: None Dermatologic: Reports: None Oncologic: Reports: None - Caffeine Use Caffeine Use: Reports: None ED ROS GENERAL - Review of Systems Review Of Systems: Comprehensive ROS is negative, except as noted in HPI. ED EXAM, GENERAL - Physical Exam Exam: See Below (see Dictation) Course - Vital Signs Last Recorded V/S: Last Vital Signs Temp 35.6 C 09/11/19 11:07 Pulse 79 09/11/19 11:07 Resp 18 09/11/19 11:07 BP 142/82 H 09/11/19 11:07 Pulse Ox 96 09/11/19 11:07 - Orders/Labs/Meds Orders: Active Orders 24 hr Category Date Time Status dexAMETHasone [Dexamethasone] Med 09/11/19 11:10 Once 10 mg IV ONETIME ONE Medication Orders Dexamethasone (Dexamethasone) 10 mg IV ONETIME ONE Stop: 09/11/19 11:11 Meds: Medications Generic Name Dose Route Start Last Admin Trade Name Freq PRN Reason Stop Dose Admin Dexamethasone 10 mg 09/11/19 11:10 Dexamethasone IV 09/11/19 11:11 ONETIME ONE Departure - Departure Time of Disposition: 11:13 Disposition: Home, Self-Care 01 Condition: Good Clinical Impression: Uvulitis Pharyngitis Qualifiers: Pharyngitis/tonsillitis etiology: unspecified etiology Qualified Code(s): J02.9 - Acute pharyngitis, unspecified - Discharge Information Referrals: PCP,Unknown [Primary Care Provider] - Additional Instructions: The following information is given to patients seen in the emergency department who are being discharged to home. This information is to outline your options for follow-up care. We provide all patients seen in our emergency department with a follow-up referral. The need for follow-up, as well as the timing and circumstances, are variable depending upon the specifics of your emergency department visit. If you don't have a primary care physician on staff, we will provide you with a referral. We always advise you to contact your personal physician following an emergency department visit to inform them of the circumstance of the visit and for follow-up with them and/or the need for any referrals to a consulting specialist. The emergency department will also refer you to a specialist when appropriate. This referral assures that you have the opportunity for followup care with a specialist. All of these measure are taken in an effort to provide you with optimal care, which includes your followup. Under all circumstances we always encourage you to contact your private physician who remains a resource for coordinating your care. When calling for followup care, please make the office aware that this follow-up is from your recent emergency room visit. If for any reason you are refused follow-up, please contact the [facility] emergency department at and ask to speak to the emergency department charge nurse. [facility] Primary care- Internal Medicine and Family [address] [address] Use antibiotics as directed and push hydration. Eat a soft diet for the next 1- 2 days and call and schedule follow-up in the clinic with one of our providers for your provider for reevaluation and further care. Return to ER as needed and as discussed - My Orders Last 24 Hours: My Active Orders 09/11/19 11:10 dexAMETHasone [Dexamethasone] 10 mg IV ONETIME ONE - Assessment/Plan Last 24 Hours: My Active Orders 09/11/19 11:10 dexAMETHasone [Dexamethasone] 10 mg IV ONETIME ONE
== END 2019-09-11 11:45 | disposition home or self-care (01) ==
LOC: MW.ED 10:28
DX: K12.2 Cellulitis and abscess of mouth (principal); J02.9 Acute pharyngitis, unspecified
CPT/HCPCS: 96374; 99282; J1100

== ENCOUNTER 2019-10-27 21:00 | Emergency (ER) | payer OTHER ==
[2019-10-27] MEDS ORDERED: Aluminum Hydroxide/Magnesium Hydroxide/Simethicone Susp 30 ML Cup PO ONE (21:26)
[2019-10-27] MEDS ORDERED: Ondansetron 4 MG Tab PO ONE (21:26)
--- NOTE | 2019-10-27 21:41 | EDM.PDOC ---
ED [facility] GENERAL MEDICAL PROBLEM - General Chief Complaint: General Stated Complaint: FLU SYMPTOMS Time Seen by Provider: 10/27/19 21:40 Source of Information: Reports: Patient History Limitations: Reports: No Limitations - History of Present Illness INITIAL COMMENTS - FREE TEXT/NARRATIVE: Patient is a 39-year-old male presenting with a chief complaint of nausea, vomiting, diarrhea, generalized body aches. Patient states symptoms been ongoing for the entire day. Patient reports having decreased oral intake due to the nausea. Patient denies any hematemesis or blood in the vomit. Patient has been experiencing chills but no fevers. Patient has had sick contact with . Patient denies any upper respiratory tract symptoms. There is been no localization of the pain. Patient states he has generalized abdominal pain. Patient denies any recent travels or rashes. In addition to that documented in the HPI above, the additional ROS was obtained : Constitutional: Denies fevers or chills Eyes: Denies vision changes ENMT: Denies sore throat CV: Denies chest pain Resp: Denies SOB GI: Per HPI : Denies painful urination MSK: Denies recent trauma Skin: Denies new rashes Neuro: Denies new numbness or tingling or weakness Endocrine: Denies unexpected weight loss Heme: Denies bleeding disorders I have reviewed the triage vital signs Const: Well nourished, well developed, appears stated age Eyes: PERRL, no conjunctival injection HENT: NCAT, Neck supple without meningismus CV: RRR, Warm, well-perfused extremities RESP: CTAB, Unlabored respiratory effort GI: soft, non-tender, non-distended, no masses MSK: No gross deformities appreciated Skin: Warm, dry. No rashes Neuro: Alert, acupressurist II-XII grossly intact. Sensation and motor function of extremities grossly intact. Psych: Appropriate mood and affect Assessment and plan: Patient is 39-year-old with no significant past medical history presenting with a chief complaint of body aches and vomiting with diarrhea. Patient likely has viral illness. Patient's exam is completely benign so there is no concern for a colitis or appendicitis. Patient is not demonstrating any respiratory distress that would make a pneumonia be of concern. There is no indication for influenza testing at this time as he would not be a candidate for Tamiflu. Patient will be treated with supportive care including Zofran and Maalox and p.o. challenge. Patient will be discharged if he is able to tolerate p.o. Treatments MANAGER OF BROADCAST CONTENT: Reports: Acetaminophen body ache Pain Score (Numeric/FACES): 8 - Related Data Allergies Allergy/AdvReac Type Severity Reaction Status Date / Time No Known Allergies Allergy Verified 10/27/19 21:07 Home Meds: Home Meds Pantoprazole Sodium 40 mg PO DAILY 10/31/15 [History] Fish Oil/[place]-3 Fatty Acids [Fish Oil 1,000 MG] 2 tab PO BID 05/19/17 [History] Ranitidine HCl [Ranitidine] 150 mg PO BEDTIME 05/19/17 [History] buPROPion HCl [Wellbutrin Xl] 150 mg PO DAILY 05/19/17 [History] Past Medical History HEENT History: Reports: None Cardiovascular History: Reports: High Cholesterol Respiratory History: Reports: Sleep Apnea Other Respiratory History: Sleep apnea with machine Gastrointestinal History: Reports: GERD, Other (See Below) Other Gastrointestinal History: Epigastric pain, vomiting post meals Genitourinary History: Reports: None Musculoskeletal History: Reports: Fracture Other Musculoskeletal History: Dislocated and fractured bilateral wrists Neurological History: Reports: Migraines, Other (See Below) Other Neuro History: Frequent Headaches Psychiatric History: Reports: Anxiety, Depression Endocrine/Metabolic History: Reports: Obesity/BMI 30+ Insulin Pump Model and An/Syq 13 Nav/C2 Operator: None Hematologic History: Reports: None Immunologic History: Reports: Other (See Below) Other Immunologic History: 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 Monte regarding this. Dermatologic History: Reports: None - Infectious Disease History Infectious Disease History: Reports: None - Past Surgical History Head Surgeries/Procedures: Reports: None HEENT Surgical History: Reports: Oral Surgery Other HEENT Surgeries/Procedures: Temple teeth extracted with anesthesia Male Surgical History: Reports: None Musculoskeletal Surgical History: Reports: Other (See Below) Other Musculoskeletal Surgeries/Procedures:: Open Right KNee Surgery Social & Family History - Family History Family Medical History: Noncontributory Cardiac: Reports: [place], Other (See Below) Other Cardiac Family History: mother and father Respiratory: Reports: None GI: Reports: None : Reports: None OBGYN: Reports: None Musculoskeletal: Reports: None Neurological: Reports: None Psychiatric: Reports: None Endocrine/Metabolic: Reports: None Hematologic: Reports: None Immunologic: Reports: None Dermatologic: Reports: None Oncologic: Reports: None - Tobacco Use Smoking Status *Q: Never Smoker - Caffeine Use Caffeine Use: Reports: Coffee - Recreational Drug Use Recreational Drug Use: No ED ROS GENERAL - Review of Systems Review Of Systems: See Below ED EXAM, GENERAL - Physical Exam Exam: See Below Course - Vital Signs Last Recorded V/S: Last Vital Signs Temp 36.5 C 10/27/19 21:08 Pulse 90 10/27/19 22:08 Resp 16 10/27/19 22:08 BP 111/63 10/27/19 22:08 Pulse Ox 96 10/27/19 22:08 - Orders/Labs/Meds Meds: Medications Discontinued Medications Generic Name Dose Route Start Last Admin Trade Name [place] PRN Reason Stop Dose Admin Al Hydroxide/Mg Hydroxide 30 ml 10/27/19 21:26 10/27/19 21:56 Mag-Al Plus PO 10/27/19 21:27 30 ml ONETIME ONE Administration Ondansetron HCl 4 mg 10/27/19 21:26 10/27/19 21:55 Zofran PO 10/27/19 21:27 4 mg ONETIME ONE Administration Departure - Departure Time of Disposition: 22:00 Disposition: Home, Self-Care 01 Clinical Impression: Viral illness - Discharge Information Instructions: Viral Illness, Adult Referrals: [facility] [Primary Care Provider] - Forms: ED Department Discharge Care Plan Goals: The following information is given to patients seen in the emergency department who are being discharged to home. This information is to outline your options for follow-up care. We provide all patients seen in our emergency department with a follow-up referral. The need for follow-up, as well as the timing and circumstances, are variable depending upon the specifics of your emergency department visit. If you don't have a primary care physician on staff, we will provide you with a referral. We always advise you to contact your personal physician following an emergency department visit to inform them of the circumstance of the visit and for follow-up with them and/or the need for any referrals to a consulting specialist. The emergency department will also refer you to a specialist when appropriate. This referral assures that you have the opportunity for follow-up care with a specialist. All of these measure are taken in an effort to provide you with optimal care, which includes your follow-up. Under all circumstances we always encourage you to contact your private physician who remains a resource for coordinating your care. When calling for follow-up care, please make the office aware that this follow-up is from your recent emergency room visit. If for any reason you are refused follow-up, please contact the [facility] Emergency Department at and asked to speak to the emergency department charge nurse. [facility] [address] [place] [address] [id number] [address] [address] Sepsis Event Note - Evaluation Sepsis Screening Result: No Definite Risk - Focused Exam Vital Signs: Vital Signs Temp Pulse Resp BP Pulse Ox 10/27/19 22:08 90 16 111/63 96 10/27/19 21:08 36.5 C 89 18 120/63 96 Date Exam was Performed: 10/28/19 Time Exam was Performed: 07:12
[2019-10-27 22:09] VITALS: BP 111/63; PULSE 90
== END 2019-10-27 22:09 | disposition home or self-care (01) ==
LOC: MW.ED 21:00
DX: B34.9 Viral infection, unspecified (principal); K21.9 Gastro-esophageal reflux disease without esophagitis; F41.9 Anxiety disorder, unspecified; F32.9 Major depressive disorder, single episode, unspecified; E66.9 Obesity, unspecified; Z68.41 Body mass index [BMI] 40.0-44.9, adult; Z79.899 Other long term (current) drug therapy
CPT/HCPCS: 99283; A9270; 99282

== ENCOUNTER 2020-12-07 09:04 | Emergency (ER) | payer OTHER, BC ==
--- NOTE | 2020-12-07 09:23 | EDM.PDOC ---
ED HPI GENERAL MEDICAL PROBLEM - General Chief Complaint: Chest Pain Stated Complaint: SOB CHEST PAIN Time Seen by Provider: 12/07/20 09:10 Source of Information: Reports: Patient History Limitations: Reports: No Limitations - History of Present Illness INITIAL COMMENTS - FREE TEXT/NARRATIVE: Is a 40-year-old male who presents today for right-sided chest pain that started yesterday. Pain states the pain is made worse when he takes a deep breath. Patient also states he has some ambulation pain as well while walking into the ED. Patient denies any nausea vomiting fever chills. Patient not take any medicine for the pain at home. Patient denies any abdominal pain or other complaints. Right Upper Chest Pain Score (Numeric/FACES): 7 - Related Data Allergies Allergy/AdvReac Type Severity Reaction Status Date / Time No Known Allergies Allergy Verified 12/07/20 09:09 Home Meds: Home Meds Pantoprazole Sodium 40 mg PO DAILY 10/31/15 [History] Fish Oil/Theodore-3 Fatty Acids [Fish Oil 1,000 MG] 2 tab PO BID 05/19/17 [History] Ranitidine HCl [Ranitidine] 150 mg PO BEDTIME 05/19/17 [History] buPROPion HCL [Wellbutrin Xl] 150 mg PO DAILY 05/19/17 [History] Past Medical History HEENT History: Reports: None Cardiovascular History: Reports: High Cholesterol Respiratory History: Reports: Sleep Apnea Other Respiratory History: Sleep apnea with machine Gastrointestinal History: Reports: GERD, Other (See Below) Other Gastrointestinal History: Epigastric pain, vomiting post meals Genitourinary History: Reports: None, Other (See Below) Other Genitourinary History: vesectomy 2020 Musculoskeletal History: Reports: Fracture Other Musculoskeletal History: Dislocated and fractured bilateral wrists Neurological History: Reports: Migraines, Other (See Below) Other Neuro History: Frequent Headaches Psychiatric History: Reports: Anxiety, Depression Endocrine/Metabolic History: Reports: Obesity/BMI 30+ 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 Monte regarding this. Dermatologic History: Reports: None - Infectious Disease History Infectious Disease History: Reports: Chicken Pox - Past Surgical History Head Surgeries/Procedures: Reports: None HEENT Surgical History: Reports: Oral Surgery Other HEENT Surgeries/Procedures: [place] teeth extracted with anesthesia Respiratory Surgical History: Reports: None GI Surgical History: Reports: EGD Male Surgical History: Reports: Vasectomy Musculoskeletal Surgical History: Reports: Other (See Below) Other Musculoskeletal Surgeries/Procedures:: Open Right KNee Surgery Social & Family History - Family History Family Medical History: No Pertinent Family History Cardiac: Reports: HI, Other (See Below) Other Cardiac Family History: mother and father Respiratory: Reports: None GI: Reports: None : Reports: None OBGYN: Reports: None Musculoskeletal: Reports: None Neurological: Reports: None Psychiatric: Reports: None Endocrine/Metabolic: Reports: None Hematologic: Reports: None Immunologic: Reports: None Dermatologic: Reports: None Oncologic: Reports: None - Caffeine Use Caffeine Use: Reports: Coffee ED ROS GENERAL - Review of Systems Review Of Systems: See Below Constitutional: Reports: No Symptoms HEENT: Reports: No Symptoms Respiratory: Reports: No Symptoms Cardiovascular: Reports: Chest Pain Endocrine: Reports: No Symptoms GI/Abdominal: Reports: No Symptoms : Reports: No Symptoms Musculoskeletal: Reports: No Symptoms Skin: Reports: No Symptoms Neurological: Reports: No Symptoms Psychiatric: Reports: No Symptoms Hematologic/Lymphatic: Reports: No Symptoms Immunologic: Reports: No Symptoms ED EXAM, GENERAL - Physical Exam Exam: See Below Exam Limited By: No Limitations General Appearance: Alert, WD/WN Respiratory/Chest: No Respiratory Distress, Lungs Clear, Normal Breath Sounds Cardiovascular: Normal Peripheral Pulses, Regular Rate, Rhythm GI/Abdominal: Normal Bowel Sounds, Soft, Tender (RUQ) Extremities: Normal Inspection Neurological: Alert, Oriented, Normal Cognition, Normal Gait #1 Interpretation EKG Date: 12/07/20 Time: 09:05 Rhythm: NSR Rate (Beats/Min): 71 QT: Normal Course - Vital Signs Last Recorded V/S: Last Vital Signs Temp 97.2 F 12/07/20 09:09 Pulse 68 12/07/20 10:37 Resp 16 12/07/20 10:37 BP 138/72 12/07/20 10:37 Pulse Ox 98 12/07/20 10:37 - Orders/Labs/Meds Orders: Active Orders 24 hr Category Date Time Status EKG Documentation Completion [RC] STAT Care 12/07/20 09:19 Active Labs: Laboratory Tests 12/07/20 12/07/20 12/07/20 Range/Units 09:15 09:15 09:15 WBC 6.17 (4.0-11.0) K/uL RBC 5.08 (4.50-5.90) M/uL Hgb 15.1 (13.0-17.0) g/dL Hct 43.1 (38.0-50.0) % MCV 84.8 (80.0-98.0) fL MCH 29.7 (27.0-32.0) pg MCHC 35.0 (31.0-37.0) g/dL RDW Std Deviation 39.5 (28.0-62.0) fl RDW Coeff of Montrell 13 (11.0-15.0) % Plt Count 247 (150-400) K/uL MPV 10.00 (7.40-12.00) fL Neut % (Auto) 50.9 (48.0-80.0) % Lymph % (Auto) 37.9 (16.0-40.0) % [place] % (Auto) 9.2 (0.0-15.0) % Eos % (Auto) 1.5 (0.0-7.0) % Baso % (Auto) 0.5 (0.0-1.5) % Neut # (Auto) 3.1 (1.4-5.7) K/uL Lymph # (Auto) 2.3 (0.6-2.4) K/uL [place] # (Auto) 0.6 (0.0-0.8) K/uL Eos # (Auto) 0.1 (0.0-0.7) K/uL Baso # (Auto) 0.0 (0.0-0.1) K/uL Nucleated RBC % 0.0 /100WBC Nucleated RBCs # 0 K/uL Lactate 1.4 (0.20-2.00) mmol/L Sodium 137 (136-148) mmol/L Potassium 3.9 (3.5-5.1) mmol/L Chloride 102 (98-107) mmol/L Carbon Dioxide 26.7 (21.0-32.0) mmol/L BUN 17 (7.0-18.0) mg/dL Creatinine 1.0 (0.8-1.3) mg/dL Est Cr Clr Drug Dosing 93.64 mL/min Estimated GFR (MDRD) > 60.0 ml/min Glucose 92 (74-106) mg/dL Calcium 8.9 (8.5-10.1) mg/dL Total Bilirubin 0.7 (0.2-1.0) mg/dL AST 17 (15-37) IU/L ALT 60 (14-63) IU/L Alkaline Phosphatase 127 H (46-116) U/L Creatine Kinase 208 (26-308) U/L Troponin I < 0.050 (0.000-0.056) ng/mL Total Protein 7.6 (6.4-8.2) g/dL Albumin 4.2 (3.4-5.0) g/dL Globulin 3.4 (2.6-4.0) g/dL Albumin/Globulin Ratio 1.2 (0.9-1.6) - Re-Assessments/Exams Free Text/Narrative Re-Assessment/Exam: 12/07/20 10:45 Patient tropes are negative pain is improved x-ray shows some possible scarring patient no white count no cough. Will have patient follow-up with cardiology as outpatient. Departure - Departure Time of Disposition: 10:45 Disposition: Home, Self-Care 01 Condition: Good Clinical Impression: Chest pain Instructions: Nonspecific Chest Pain, Adult Forms: ED Department Discharge Additional Instructions: The following information is given to patients seen in the emergency department who are being discharged to home. This information is to outline your options for follow-up care. We provide all patients seen in our emergency department with a follow-up referral. The need for follow-up, as well as the timing and circumstances, are variable depending upon the specifics of your emergency department visit. If you don't have a primary care physician on staff, we will provide you with a referral. We always advise you to contact your personal physician following an emergency department visit to inform them of the circumstance of the visit and f or follow-up with them and/or the need for any referrals to a consulting specialist. The emergency department will also refer you to a specialist when appropriate. This referral assures that you have the opportunity for follow-up care with a specialist. All of these measure are taken in an effort to provide you with optimal care, which includes your follow-up. Under all circumstances we always encourage you to contact your private physician who remains a resource for coordinating your care. When calling for follow-up care, please make the office aware that this follow-up is from your recent emergency room visit. If for any reason you are refused follow-up, please contact the [facility] Emergency Department at and asked to speak to the emergency department charge nurse. Please follow up with your primary care physician. If you do not have a primary care physician, see below: [facility] [address] [place] [phone] [facility] [address] [place], [place] [phone] Card[facility] at [facility] [address] [place] [address] Schedule appointment with cardiology this week. Given increased chest pain no other symptoms please return to the ED. Sepsis Event Note (ED) - Evaluation Sepsis Screening Result: No Definite Risk - Focused Exam Vital Signs: Vital Signs Temp Pulse Resp BP Pulse Ox 12/07/20 10:37 68 16 138/72 98 12/07/20 09:09 97.2 F 74 18 156/92 H - My Orders Last 24 Hours: My Active Orders 12/07/20 09:19 EKG Documentation Completion [RC] STAT - Assessment/Plan Last 24 Hours: My Active Orders 12/07/20 09:19 EKG Documentation Completion [RC] STAT Plan: Patient is a 40-year-old male who presents today for right-sided chest pain. On exam patient has more pain in the right upper quadrant we will still obtain EKG labs x-ray troponins but also look for liver enzyme as well.
[2020-12-07 09:50] LABS: BLOOD UREA NITROGEN,BUN 17 mg/dL (7.0-18.0); CARBON DIOXIDE,CO2 26.7 mmol/L (21.0-32.0); CHLORIDE,CL 102 mmol/L (98-107); GLUCOSE RANDOM 92 mg/dL (74-106); POTASSIUM,K 3.9 mmol/L (3.5-5.1); SODIUM,NA 137 mmol/L (136-148)
--- NOTE | 2020-12-07 10:25 | CR ---
In Indication: Right-sided chest pain Comparison: Two view chest September 23, 2019 Technique: PA and Lateral views chest Findings: There is hyperinflation and chronic interstitial change with basilar atelectasis versus parenchymal scar. There is no dense consolidation, effusion, or pneumothorax. The cardiomediastinal silhouette is within normal limits. The bony thorax is grossly intact. Impression: Hyperinflation and chronic appearing interstitial markings with linear basilar atelectasis versus scar predominantly within the right lung base. Dictated by Phil Carr MD @ Dec 07 2020 10:18AM Signed by Dr. Phil Carr @ Dec 07 2020 10:23AM
--- NOTE | 2020-12-07 11:00 | US ---
INDICATION: Abdominal pain. TECHNIQUE: Ultrasound abdomen limited. Sonographic images of the right upper quadrant were obtained using macedo-scale and color Doppler images. COMPARISON: None. FINDINGS: Liver: The liver is enlarged with hepatic steatosis. There is no focal abnormality. No masses. No intrahepatic biliary dilatation. Gallbladder: The gallbladder demonstrates no shadowing calculus. There is no sonographic Graham`s tenderness. No sign of gallbladder wall thickening or pericholecystic fluid. Common bile duct: 4.2 mm. Pancreas: Unremarkable. Right kidney: Normal in size. Normal echotexture and cortex. No masses, stones, or hydronephrosis. Vasculature: Proximal abdominal aorta and IVC are normal. IMPRESSION: Moderate hepatomegaly and hepatic steatosis. Otherwise unremarkable right upper quadrant. No evidence of cholelithiasis or acute cholecystitis. Dictated by Phil Carr MD @ Dec 07 2020 10:51AM Signed by Dr. Phil Carr @ Dec 07 2020 10:59AM
[2020-12-07 11:21] VITALS: BP 132/75; PULSE 70
== END 2020-12-07 11:20 | disposition home or self-care (01) ==
LOC: MW.ED 09:04
DX: R07.9 Chest pain, unspecified (principal); R10.11 Right upper quadrant pain; K21.9 Gastro-esophageal reflux disease without esophagitis; E66.9 Obesity, unspecified; Z68.41 Body mass index [BMI] 40.0-44.9, adult; Z79.899 Other long term (current) drug therapy
CPT/HCPCS: 36415; 71046; 71046-26; 76705; 76705-26; 80053; 82550; 83605; 84484; 85025; 93005; 99285-25